=== PATIENT | female | born 1990 | race Caucasian/White ===

== ENCOUNTER 2017-04-29 12:23 | Emergency (ER) | payer SELFPAY ==
--- NOTE | 2017-04-29 13:17 | ER Document Report ---
HPI - HPI Patient complains to provider of: sore throat Onset: Other - 2 days Onset/Duration: Gradual Quality of pain: Achy, Throbbing Pain Level: 4 Context: 27 yo c/o sore throat for several days with fever, bodyaches, headache. No rash. No vomiting or diarrhea. mild cough. Associated Symptoms: None Exacerbated by: Other - swallowing Similar symptoms previously: No Recently seen / treated by doctor: No - ROS ROS below otherwise negative: Yes Systems Reviewed and Negative: Yes All other systems reviewed and negative - REPRODUCTIVE Reproductive: DENIES: : - DERM Skin Color: Normal Past Medical History - General Information source: Patient - Social History Smoking Status: Current Every Day Smoker Chew tobacco use (# tins/day): No Frequency of alcohol use: None Drug Abuse: None Lives with: Family Family History: Reviewed & Not Pertinent Patient has suicidal ideation: No Patient has homicidal ideation: No - Medical History Medical History: Negative Renal/ Medical History: Denies: Hx Peritoneal Dialysis Surgical Hx: Negative Vertical Provider Document - CONSTITUTIONAL Agree With Documented VS: Yes Exam Limitations: No Limitations - INFECTION CONTROL TRAVEL OUTSIDE OF THE [place] IN LAST 30 DAYS: No - HEENT HEENT: PERRLA, Pharyngeal Erythema. negative: Conjuctival Injection, Pharyngeal Exudate, Tympanic Membrane Red, Tympanic Membrane Bulging - NECK Neck: Supple, Lymphadenopathy-Left - Anterior, Lymphadenopathy-Right - Anterior - RESPIRATORY Respiratory: Breath Sounds Normal, No Respiratory Distress O2 Sat by Pulse Oximetry: 97 - CARDIOVASCULAR Cardiovascular: Regular Rate, Regular Rhythm - GI/ABDOMEN Gastrointestinal: Abdomen Soft, Abdomen Non-Tender, No Organomegaly - BACK Back: Normal Inspection - MUSCULOSKELETAL/EXTREMETIES Musculoskeletal/Extremeties: CLINTON GARCIA - NEURO Level of Consciousness: Awake, Alert - DERM Integumentary: Warm, Dry, No Rash Course - Vital Signs Vital signs: Temp Pulse Resp BP Pulse Ox 100.0 F 98 20 122/79 97 04/29/17 12:27 04/29/17 12:27 04/29/17 12:27 04/29/17 12:27 04/29/17 12:27 Discharge - Discharge Clinical Impression: Sore throat Condition: Good Disposition: HOME, SELF-CARE Instructions: Penicillin V K ([facility]), Sore Throat ([facility]), Acetaminophen, Use of [id number] Ibuprofen ([facility]) Additional Instructions: Drink plenty of fluids Return to the emergency room if worse Tylenol for fever and pain Please complete the patient satisfaction survey if you get one, and return it.. If you do not receive a survey, then you can go to the [facility] website, [email or web address] and place your comments about your very good care. Thank you very much. It was a pleasure being your medical provider today. Prescriptions: Penicillin V Potassium [Penicillin Vk 500 mg Tablet] 500 mg PO QID #40 tablet Forms: Return to Work
[2017-04-29 13:36] VITALS: BP 120/72
== END 2017-04-29 13:36 | disposition home or self-care (01) ==
LOC: ER 12:23
DX: J02.9 Acute pharyngitis, unspecified (principal); R50.9 Fever, unspecified; R52 Pain, unspecified; R51 Headache; F17.200 Nicotine dependence, unspecified, uncomplicated
CPT/HCPCS: 99282

== ENCOUNTER 2020-07-25 15:51 | Emergency (ER) | payer SELFPAY ==
--- NOTE | 2020-07-25 16:45 | ER Document Report ---
HPI - HPI Patient complains to provider of: Skin rash Time Seen by Provider: 07/25/20 16:36 Onset: Yesterday Onset/Duration: Gradual Pain Level: Denies Context: Patient complains of pruritic skin rash that developed yesterday. Patient denies any new foods, medications, or detergents. Associated Symptoms: Other - Skin rash. denies: Fever, Headache Exacerbated by: Denies Relieved by: Denies Similar symptoms previously: No Recently seen / treated by doctor: No - ROS ROS below otherwise negative: Yes Systems Reviewed and Negative: Yes All other systems reviewed and negative - CONSTITUTIONAL Constitutional: DENIES: Fever, Chills - NEURO Neurology: DENIES: Headache - RESPIRATORY Respiratory: DENIES: Trouble Breathing, Coughing - REPRODUCTIVE Reproductive: DENIES: : - DERM Skin Color: Normal Skin Problems: Rash Past Medical History - General Information source: Patient - Social History Smoking Status: Former Smoker Frequency of alcohol use: None Drug Abuse: None Occupation: Foodservice Family History: Reviewed & Not Pertinent Patient has homicidal ideation: No - Medical History Medical History: Negative Renal/ Medical History: Denies: Hx Peritoneal Dialysis Surgical Hx: Negative Vertical Provider Document - CONSTITUTIONAL Agree With Documented VS: Yes Exam Limitations: No Limitations General Appearance: WD/WN, No Apparent Distress - INFECTION CONTROL TRAVEL OUTSIDE OF THE [place] IN LAST 30 DAYS: No - HEENT HEENT: Atraumatic, Normocephalic, Pharyngeal Tenderness, Pharyngeal Erythema. negative: Pharyngeal Exudate, Tympanic Membrane Red, Tympanic Membrane Bulging - NECK Neck: Normal Inspection, Supple. negative: Lymphadenopathy-Left, Lymphadenopathy-Right - RESPIRATORY Respiratory: Breath Sounds Normal, No Respiratory Distress - CARDIOVASCULAR Cardiovascular: Regular Rate, Regular Rhythm - BACK Back: Normal Inspection - MUSCULOSKELETAL/EXTREMETIES Musculoskeletal/Extremeties: MAEW - NEURO Level of Consciousness: Awake, Alert, Appropriate Motor/Sensory: No Motor Deficit - DERM Integumentary: Warm, Dry, Rash - With erythematous maculopapular rash distributed to trunk and extremities Course - Re-evaluation Re-evalutation: 07/25/20 16:44 Areas of the rash to look suspicious for possible scabies, but reports look suspicious for likely viral exanthem, will cover with steroids as well as topical mite cream - Vital Signs Vital signs: Temp Pulse Resp BP Pulse Ox 99.3 F 86 18 146/79 H 99 07/25/20 15:56 07/25/20 15:56 07/25/20 15:56 07/25/20 15:56 07/25/20 15:56 Discharge - Discharge Clinical Impression: Skin rash, Sore throat Condition: Stable Disposition: HOME, SELF-CARE Instructions: Antihistamines ([facility]), Steroid Medication Additional Instructions: Return immediately for any new or worsening symptoms Followup with your primary care provider, call tomorrow to make a followup appointment Prescriptions: Permethrin [Acticin 5% Cream 60 gm] 1 applic TP ONCE PRN #60 gm PRN Reason: Prednisone [Deltasone 10 mg Tablet] 10 mg PO ASDIR #21 tablet Hydroxyzine Pamoate [Vistaril 50 mg Capsule] 50 mg PO TID PRN #15 capsule PRN Reason: Referrals: [facility] [Provider Group] - Follow up as needed
[2020-07-25 17:34] VITALS: BP 126/85
== END 2020-07-25 17:24 | disposition home or self-care (01) ==
LOC: ER 15:51
DX: R21 Rash and other nonspecific skin eruption (principal); J02.9 Acute pharyngitis, unspecified
CPT/HCPCS: 87070; 87880; 99283